=== PATIENT | male | born 1965 | race Caucasian/White ===

== ENCOUNTER → 2019-03-01 | Outpatient (CLI) | payer MEDICARE ==
[~2019-03-01] MED LIST: ASPIRIN 32325 MG/TAB PO; ASPIRIN 81M81 MG/TA2 PO; COZAAR 25MG25 MG/TAB; GUAIFEN-PSE 6001 TER PO; LEVAQUIN 5500 MG/TAB PO; LIPITOR 10MG10 MG; LOPRESSOR 225 MG/TAB; LORTAB 5/500 501 TAB PO; MAGCITRATE; NITRO-DUR0.2 MG/PAT; NITROSTAT0.4 MG/TAB SL; NO HOME MEDICATIONS; PENICILLIN250 MG PO; PROVENTIL 2MG TA2 MG; SENNA8.6 MG; SUDAFED 12HR120 MG PO; ULTRAM 50MG TAB50 MG PO; ZITHROMAX Z PA250 MG PO
== END ==
LOC: COL.VAS 12:08
DX: I70.203 Unspecified atherosclerosis of native arteries of extremities, bilateral legs (principal)

== ENCOUNTER 2023-02-10 20:21 | Emergency (ER) | payer MEDICARE, MEDICAID ==
[~2023-02-10] VITALS: Ht 182.9 cm; Wt 98.2 kg
[2023-02-10] MEDS ORDERED: LIDODERM 5% PATC1 EA TP (22:20)
[2023-02-10] MEDS ORDERED: NORCO 325 MG-51 TAB PO (22:20)
[2023-02-10 22:37] VITALS: BP 136/84; PULSE 88; TEMP 97.3
== END 2023-02-10 22:40 | disposition home or self-care (01) ==
LOC: COL.ER 20:21
DX: S20.212A Contusion of left front wall of thorax, initial encounter (principal); F17.200 Nicotine dependence, unspecified, uncomplicated; W01.190A Fall on same level from slipping, tripping and stumbling with subsequent striking against furniture, initial encounter